=== PATIENT | male | born 1940 | race Caucasian/White ===

== ENCOUNTER 2018-10-10 05:42 | Observation (INO) ==
[2018-10-10] MEDS ORDERED: MORPHINE IV ONE (06:09)
--- NOTE | 2018-10-10 06:14 | PROVIDER DOCUMENTATION ---
HPI-General Adult - General Chief Complaint: Chest Pain Stated Complaint: (L) CHEST PAIN Time Seen by Provider: 10/10/18 06:01 Source: patient, family Allergies/Adverse Reactions: Patient Allergies Allergy/AdvReac Type Severity Reaction Status Date / Time Penicillins Allergy Unknown Verified 03/06/17 14:56 Home Medications: Home Medication List Medication Instructions Recorded Confirmed Last Taken Type Clopidogrel Bisulfate [Clopidogrel] 1 tab PO DAILY 03/06/17 03/06/17 Unknown History Diltiazem HCl [Diltiazem 24Hr ER 1 tab PO DAILY 03/06/17 03/06/17 Unknown History (Cd)] Lisinopril/Hydrochlorothiazide 1 tab PO DAILY 03/06/17 03/06/17 Unknown History [Lisinopril-Hctz 20-25 mg Tab] Nitroglycerin Sl [Nitroglycerin] 0.4 mg SL PRN PRN #100 tablet 03/06/17 03/06/17 Unknown Rx Pravastatin Sodium 40 mg PO DAILY 03/06/17 03/06/17 Unknown History CefDINIR [Omnicef] 300 mg PO BID #10 cap 03/10/17 Unknown Rx - History of Present Illness -Gen Adult Nature of Presenting Problems: Pt presents with cp, x 2 days, happened again this am and awoke the pt from sleep, left sided, pressure, radiation to the left arm, pt has prior CAD with a stent, pt still having some pain now, pt denies f/c, hu, sob, cough, ap, n/v/d. Pt is lying in bed in no acute distress. Location of Pain/Injury: reports: chest Pain Radiation: reports: arm(s) (left) Quality of Pain: reports: pressure Severity: reports: moderate Onset/Duration: reports: 1-3 hours ago Timing: reports: still present, improving Context/Activities at Onset: reports: none Modifying Factors: improves with: nothing Associated Symptoms: reports: denies symptoms Similar Symptoms Previously?: Yes Recently seen or treated by another doctor?: No Review of Systems - Adult - REVIEW OF SYSTEMS - ADULT Constitutional: reports: no symptoms reported Eyes: reports: no symptoms reported Ears, Nose, Mouth & Throat: reports: no symptoms reported Cardiovascular: reports: see HPI Respiratory: reports: no symptoms reported Gastrointestinal: reports: no symptoms reported Genitourinary: reports: no symptoms reported Musculoskeletal: reports: no symptoms reported Integumentary: reports: no symptoms reported Neurological: reports: no symptoms reported Psychiatric: reports: no symptoms reported Endocrine: reports: no symptoms reported Hematologic/Lymphatic: reports: no symptoms reported Allergic/Immunologic: reports: no symptoms reported All Other Systems: Reviewed and Negative Past History - Adult - PAST MEDICAL HISTORY-ADULT Review of Records: reports: Old Records Reviewed, Nursing Assessment Review, Medications Reviewed, Social history reviewed & non-contributory. Major Childhood Illnesses: reports: denies history Cardiovascular: reports: A-Fib, HTN, palpitations. denies: blood clots, PAD, pacemaker Respiratory: denies: asthma, COPD, sleep apnea Gastrointestinal: reports: hepatitis. denies: cholelithiasis, GERD, GI bleed, hemorrhoids, pancreatitis, ulcer Genitourinary: denies: ESRD, kidney disease, kidney stones, polycystic kidney disease, chronic UTI's, prostatitis, prostate cancer Musculoskeletal: reports: chronic pain Neurological: reports: TIA Psychiatric: reports: denies history Endocrine/Immune: denies: Diabetes, thyroid disorder Other Conditions: reports: denies history - PRIOR SURGERIES/PROCEDURES Surgical/Procedure History: reports: appendectomy, cardiac stent, joint replacement - IMMUNIZATION STATUS Childhood Immunizations: See Nurse Assessment Flu Vaccine: See Nurse Assessment Physical Exam-General - PHYSICAL EXAM-ADULT Initial Vital Signs Reviewed: Yes - CONSTITUTIONAL General Appearance: appears well - EYES Eyes: PERRL/EOMI - HEAD, EARS, NOSE, MOUTH & THROAT HENMT: normal ENT inspection - NECK Neck: normal inspection - RESPIRATORY Respiratory: lungs clear, no respiratory distress, no accessory muscle use - CARDIOVASCULAR Cardiovascular: regular rate, rhythm - GASTROINTESTINAL (ABDOMEN) Abdominal Exam: normal bowel sounds, non tender, soft - LYMPHATIC Lymphatic: no adenopathy - MUSCULOSKELETAL Back Exam: normal inspection Extremity: normal range of motion - SKIN Integumentary: normal color - NEUROLOGIC Neurologic: grossly normal - PSYCHIATRIC Psych/Mental Status: normal mood/affect Progress - PLAN OF CARE/RESULTS Progress/Plan/Lab Results: Vital Signs - 8 hr 10/10/18 05:50 Temperature 98.2 F Pulse Rate 80 Respiratory Rate 18 Blood Pressure 134/112 O2 Sat by Pulse Oximetry 97 Orders Category Date Time Status cxr [CHEST-1 VIEW] [RAD] Stat Exams 10/10/18 06:08 Ordered CBC WITH ELECTRONIC DIFF [HEME] Stat Lab 10/10/18 06:07 Uncollected COMPREHENSIVE METABOLIC PANEL [CHEM] Stat Lab 10/10/18 06:08 Uncollected PRO B-NATRIURETIC PEPTIDE Stat Lab 10/10/18 06:08 Uncollected TROPONIN T Stat Lab 10/10/18 06:08 Uncollected Morphine Med 10/10/18 06:09 Once 4 mg IV NOW ONE EKG [EKG] Stat Ther 10/10/18 05:46 Ordered Result Diagrams: 10/10/18 06:08 10/10/18 06:08 - CONSULTS/PCP/HOSPITALIST Notification #1 *Consult/PCP/Hospitalist*: Spoke with Celestino. Admitt to Dr Cruz Time Discussed: 07:48 Departure - Departure Date of Disposition Decision: 10/10/18 Time of Disposition Decision: 07:49 DIAGNOSIS: Chest pain Disposition: ADMITTED INPATIENT 09 Certified Medical Emergency: Emergent Condition: Stable Referrals and Follow-Ups: Tamika Montenegro MD [Primary Care Provider] - - Critical Care Note This patient required my direct & personal management of CC.: No Attestation - Physician/ BEN Attestation Patient care was provided by Advanced Practice Provider:: No The physician spent face to face time with patient:: Yes Advanced Practice Provider documentation review:: Supervising physician onsite and consulted in the evaluation and care of this patient. The physician did have a face to face encounter with the patient.
[2018-10-10 06:43] LABS: BASO# 0.02 X1000 (0.0-0.2); BASO% 0.3 % (0.0-0.8); EOS# 0.16 X1000 (0.0-0.7); EOS% 2.7 % (0.0-10.0); HEMATOCRIT 47.3 % (42.0-52.0); HEMOGLOBIN 16.6 g/dL (14.0-18.0); IMM GRAN# 0.03 X1000 (0.0-0.04); IMM GRAN% 0.5 % (0.0-0.5); LYMPH# 1.63 X1000 (1.2-3.4); LYMPH% 27.7 % (20.5-51.1); MCH 33.7 PG (27-31); MCHC 35.1 g/dL (33-37); MCV 95.9 FL (81-99); MONO# 0.53 X1000 (0.11-0.59); MPV 8.7 FL (7.4-10.4); NEUT# 3.51 X1000 (1.4-6.5); NEUT% 59.8 % (42.2-75.2); PLT 199 X1000 (130-400); RBC 4.93 XMIL (4.7-6.1); RDW 13.8 % (11.5-14.5); WBC 5.88 X1000 (4.8-10.8)
[2018-10-10 06:57] LABS: AGAP 13; ALB/GLOB RATIO 1.7; ALBUMIN 4.3 g/dL (3.5-5.0); ALKALINE PHOSPHATASE 110 U/L (32-122); BUN 19 mg/dL (8-22); CALCIUM 9.5 mg/dL (8.8-10.2); CHLORIDE 102 mmol/L (98-107); COSMO 284; CREATININE 0.9 mg/dL (0.7-1.2); ESTIMATED GFR > 60; GLUCOSE 102 mg/dL (70-104); GOT 27 U/L (10-34); GPT 24 U/L (10-44); POTASSIUM 4.5 mmol/L (3.5-5.1); SODIUM 141 mmol/L (136-145); TCO2 26 mmol/L (25-35); TOTAL BILIRUBIN 0.82 mg/dL (0.20-1.00); TOTAL PROTEIN 6.9 g/dL (6.3-8.3)
--- NOTE | 2018-10-10 07:17 | Diag Imaging Result Doc PS360 ---
EXAM: CHEST-1 VIEW HISTORY: chest pain TECHNIQUE: Portable chest single view COMPARISON: 03/09/2017 FINDINGS: The lungs are well expanded. The heart is enlarged. The vessels are not distended. There are no infiltrates. No effusion identified. IMPRESSION: Mild cardiomegaly Electronically signed by Jasper Squires 10/10/2018 7:14 AM
[2018-10-10] MEDS ORDERED: ZOFRAN IV PRN (09:55)
[2018-10-10] MEDS ORDERED: TYLENOL PO PRN (09:55)
[2018-10-10] MEDS ORDERED: NITROGLYCERIN SL PRN (09:55)
[2018-10-10 09:56] LABS: TSH 3.11 uIUmL (0.27-4.20)
--- NOTE | 2018-10-10 09:57 | HISTORY AND PHYSICAL ---
HISTORY OF PRESENT ILLNESS: This is a 78-year-old patient of Dr. Tamika Montenegro. He has a history of coronary artery disease, history of hypertension, history of peripheral vascular disease, prior CVA. He presented to the emergency room. I think he had chest pain a couple days ago and then he had some chest pain this morning that woke him up, left side, radiated to his left arm, felt like a syringe sticking him so it is sharp pain. His reported he was diaphoretic. He did not report palpitations. The pain lasted several minutes, was not associated with exertion. His swage tender is Dr. Saul Frazier. PAST MEDICAL HISTORY: 1. Coronary artery disease. 2. Hypertension. 3. Hyperlipidemia. 4. Macular degeneration. 5. Ulcerative colitis. 6. Paroxysmal atrial fibrillation. 7. Chronic lower back pain. PAST SURGICAL HISTORY: 1. Status post hernia repair. 2. Status post appendectomy. 3. He has had heart stents placed. I am not sure of details. 4. Left knee arthroplasty. FAMILY HISTORY: Grandfather, myocardial infarction. He has brothers with liver cancer, apparently cancer in the family, and I think he said his dad of a massive myocardial infarction. SOCIAL HISTORY: Negative for cigarettes. He does chew tobacco. Four mini bottles of liquor daily. REVIEW OF SYSTEMS: Constitutional: He does not sleep very well, I think he sleeps in a recliner and gets up and snacks through the night. 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 No fever or chills. Respiratory: He does not report any increased paroxysmal nocturnal dyspnea, increased orthopnea. His thinks maybe he has had a little more swelling in his ankles the last couple days. Cardiovascular: As above. He will get chest pains like this he says from [id number] but does not pay much attention to them, but this one got his attention. Gastrointestinal and Genitourinary: No complaints of change in bowels. He does have a history of ulcerative colitis and I am assuming he has a history of benign prostatic hypertrophy but is not having much in the way of symptoms. Musculoskeletal/neurologic: No focal complaints other than his back pain which has been chronic. Endocrinologic/hematologic: No significant history. PHYSICAL EXAMINATION: VITAL SIGNS: In the emergency room, temperature 98.2 degrees, pulse 74, respirations 23, blood pressure 147/103. HEENT: Pupils are equal and round. NECK: No distended neck veins. CVP less than 6 cm from right atrium. Neck is supple. No adenopathy appreciated. No thyromegaly. GENERAL: He is alert and oriented x3, pleasant, can give a good history. Weight 200 pounds. Height 5 feet 9 inches. LUNGS: Clear in all lung morgan. CARDIOVASCULAR: Regular rhythm and rate without murmur or S3. On the monitor, he appears to be in sinus rhythm. Carotid, radial, femoral pulses 2+ and symmetrical. No pedal edema. ABDOMEN: Soft, nondistended. LABORATORY DATA: White count 5880, hematocrit is 47, platelet count 199,000. Sodium 141, potassium 4.5, chloride 102, BUN 19, creatinine 0.9. ProBNP 555. Troponin less than 0.01. DIAGNOSTIC DATA: Chest x-ray, mild cardiomegaly. We will look at EKG ASSESSMENT AND PLAN: 1. Chest pain which is atypical, but he has a history of coronary artery disease. He has had a myocardial perfusion scan on 03/10/2017, which showed no evidence of ischemia, normal left ventricular cavity size, at that time ejection fraction was 60%. This chest pain is sharp. It is not necessarily related to exertion, although it does radiate into his left arm. We will ask Cardiology to help evaluate. We will check serial cardiac enzymes, both CK and troponin. We will check serial EKGs. 2. History of hypertension. We will watch his blood pressure. 3. History of hypercholesterolemia. We will check a lipid profile in the morning, fasting, as well as a T4, TSH, B12 and folate. 4. He has a history of ulcerative colitis which he has no complaints at this time. 5. History of paroxysmal atrial fibrillation, aware. 6. Chronic lower back pain. 7. Looking back at his old echocardiogram which was done in February 2017, there again, ejection fraction estimated at 60%, mild left ventricular hypertrophy. Technically suboptimal study. No valvular dysfunction. There was trace to mild mitral regurgitation. His electrocardiogram done on 03/07/2017, at that time he was in sinus tachycardia, had some PVCs, poor R-wave progression in the anterolateral leads but no ST-segment pathology that I can appreciate. He had an extremity venous study done back in February 2017, this was for chest pain; no evidence of deep venous thrombosis. cc: Shane Cruz MD MTDD
[2018-10-10 11:36] LABS: AGAP 15; BUN 17 mg/dL (8-22); CALCIUM 9.6 mg/dL (8.8-10.2); CHLORIDE 103 mmol/L (98-107); CK PROFILE 71 U/L (24-204); COSMO 285; CREATININE 0.8 mg/dL (0.7-1.2); ESTIMATED GFR > 60; GLUCOSE 100 mg/dL (70-104); POTASSIUM 4.2 mmol/L (3.5-5.1); SODIUM 142 mmol/L (136-145); TCO2 24 mmol/L (25-35)
[2018-10-10] MEDS: PRINZIDE 10/12.5MG PO SCH (14:00)
[2018-10-10] MEDS: CARDIZEM CD PO SCH (15:19)
[2018-10-10] MEDS: MORPHINE IV PRN (17:13)
--- NOTE | 2018-10-10 20:18 | CONSULTATION ---
DATE OF CONSULTATION: 10/10/2018 IMPRESSION: 1. Episode of chest pain, fairly typical for myocardial ischemia and quite brief. ECG is benign. 2. Atherosclerotic coronary disease with history of previous coronary angioplasty/stent approximately 3 years ago. Patient last had stress testing in 2017 which was reportedly negative. 3. Hypertension. 4. Hyperlipidemia. 5. Obesity. RECOMMENDATIONS: 1. Telemetry observation. 2. Follow through with serial cardiac enzymes. 3. 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 HISTORY: This 78-year-old white male with past history of previous coronary angioplasty/stent approximately 3 years ago, hypertension, peripheral vascular disease and hyperlipidemia was admitted to the emergency room after an episode of chest pain. He describes some sharp, brief left-sided chest discomfort. There was some numbness in his left arm. The discomfort occurred while he was "piddling" in the yard. The discomfort lasted 1 or 2 minutes and resolved spontaneously. There were no other associated symptoms. The discomfort was not like what he had with his previous heart attack. There were no other associated symptoms. The discomfort is not like what he had prior to his coronary angioplasty procedure 3 years ago. He describes the previous chest discomfort as being a dull, deep discomfort. He is fairly active physically and denies any exertional chest discomfort. PAST MEDICAL HISTORY: 1. Atherosclerotic coronary disease. 2. Hypertension. 3. Hyperlipidemia. 4. Macular degeneration with impaired vision. 5. Ulcerative colitis. 6. Previous episode of atrial fibrillation. 7. Chronic low back pain. PAST SURGICAL HISTORY: 1. Previous hernia repair. 2. Appendectomy. 3. Left knee arthroplasty. ALLERGIES/INTOLERANCES:: Penicillins. MEDICATIONS PRIOR TO ADMISSION: As listed. SOCIAL HISTORY: He does not smoke. He does chew tobacco. He drinks several small alcoholic beverages daily. FAMILY HISTORY: Negative for premature coronary disease. There is a family history of coronary disease with older age of clinical onset. REVIEW OF SYSTEMS: Pulmonary: Negative. Gastrointestinal: Negative. Constitutional: Negative. Remainder of Systems: Negative/noncontributory with 14 total systems reviewed. PHYSICAL EXAMINATION: General: This is an overweight older white male with mild obesity, in no distress on room air. Vital signs: Blood pressure ranging from 145/104 to 179/124, heart rate 90 and regular. Oxygen saturation 94% on room air. HEENT: Extraocular movements intact. Mucous membranes moist. Neck: Supple without jugular venous distention. There are no carotid bruits. Chest: Clear to auscultation bilaterally. Cardiac Exam: Reveals a regular rate and rhythm without appreciable murmur or gallop. Abdomen: Soft and nontender. Bowel sounds are normal. Extremities: Without edema. Neurologic: Reveals him to be alert. Speech is fluent. He moves all 4 extremities equally well. Skin: Warm and dry. Psychiatric: Reveals mood to be appropriate. PERTINENT DATA: Twelve-lead EKG obtained in the emergency room is not scanned into the medical record not in the patient's bedside chart. LABORATORY DATA: Includes a white blood cell count of 5.8, hematocrit of 47.3, hemoglobin of 16.6, platelet count of 199. Sodium 142, potassium 4.2, chloride 103, carbon dioxide 24, BUN 17, creatinine 0.8, glucose 100. Troponin-T less than 0.01. Repeat troponin-T less than 0.01. cc: Shmuel Cantor MD
[2018-10-10] MEDS: ELIQUIS PO SCH (20:41)
[2018-10-10] MEDS ORDERED: PRAVACHOL PO SCH (21:00)
[2018-10-11] MEDS: MORPHINE IV PRN (02:00)
[2018-10-11 06:45] LABS: BASO# 0.02 X1000 (0.0-0.2); BASO% 0.3 % (0.0-0.8); EOS# 0.14 X1000 (0.0-0.7); HEMATOCRIT 48.4 % (42.0-52.0); HEMOGLOBIN 16.4 g/dL (14.0-18.0); IMM GRAN# 0.02 X1000 (0.0-0.04); IMM GRAN% 0.3 % (0.0-0.5); LYMPH# 1.65 X1000 (1.2-3.4); LYMPH% 23.9 % (20.5-51.1); MCH 33.1 PG (27-31); MCHC 33.9 g/dL (33-37); MCV 97.6 FL (81-99); MONO# 0.78 X1000 (0.11-0.59); MONO% 11.3 % (1.7-9.3); MPV 8.7 FL (7.4-10.4); NEUT# 4.29 X1000 (1.4-6.5); NEUT% 62.2 % (42.2-75.2); PLT 190 X1000 (130-400); RBC 4.96 XMIL (4.7-6.1); RDW 13.9 % (11.5-14.5)
[2018-10-11] MEDS ORDERED: PRILOSEC PO SCH (07:00)
[2018-10-11 07:43] VITALS: BP 120/76
[2018-10-11] MEDS: CARDIZEM CD PO SCH (08:14)
[2018-10-11] MEDS: ELIQUIS PO SCH (08:14)
[2018-10-11] MEDS: PRINZIDE 10/12.5MG PO SCH (08:15)
[2018-10-11] MEDS ORDERED: ASPIRIN PO SCH ×2 (09:00)
--- NOTE | 2018-10-11 11:50 | PROGRESS NOTE ---
DATE: 10/11/2018 SUBJECTIVE: The patient continues without further chest discomfort. He does relate that he has chronic abdominal bloating and constipation to the point that he has to take laxatives frequently. OBJECTIVE: Vital Signs: Blood pressure 120/76, heart rate 58 and regular, oxygen saturation 100% on room air. There is no significant jugular venous distention. Chest is clear to auscultation. Cardiac Examination reveals a regular rate and rhythm without appreciable murmur or gallop. Abdomen is distended and tympanitic. Bowel sounds audible. Extremities are without edema. Laboratory Data: Includes white blood cell count of 6.9, hematocrit. 48.86, hemoglobin 16.4, platelet count 190,000. Initial troponin less than 0.01. Followup troponin less 0.01 and further followup troponin less than 0.01. Initial CPK 76 with a followup CPK of 56. Triglycerides 177, total cholesterol 173, LDL cholesterol 99, HDL cholesterol 68. IMPRESSION: 1. Recent brief episode of atypical chest pain with no objective evidence of ischemia. 2. Atherosclerotic coronary disease with previous coronary angioplasty/stent approximately 3 years ago. 3. Hypertension. 4. Hyperlipidemia. LDL cholesterol above desired target despite Pravachol. 5. Obesity. 6. Tendency for constipation, possibly related to calcium channel antagonist, diltiazem. RECOMMENDATIONS: 1. Discontinue diltiazem and start carvedilol. 2. Switch from lisinopril/hydrochlorothiazide to losartan. 3. Intensify statin therapy by discontinuing pravastatin and starting atorvastatin 20 mg p.o. daily. 4. 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 Saul Frazier, and consider further evaluation with Lexiscan sestamibi study. cc: Shmuel Cantor MD
[2018-10-11] MEDS ORDERED: PNEUMOVAX 23 IM ONE (13:51)
--- NOTE | 2018-10-11 13:57 | DISCHARGE SUMMARY ---
ADMISSION DATE: 10/10/2018 DISCHARGE DATE: 10/11/[address] Tamika Montenegro, 78-year-old has a history of coronary artery disease, history of hypertension, history of peripheral vascular disease, prior CVA. He presented to the emergency room, had chest pain couple days and then had some pain and woke him up the left side described as a syringe poking in him sharp pain and the stated he was diaphoretic. He did not report any palpitations. The pain lasted several minutes and seemed to come and go. He is followed by Dr. Saul Frazier. PAST MEDICAL HISTORY: 1. Coronary artery disease. 2. Hypertension. 3. Hyperlipidemia. 4. Macular degeneration. 5. Ulcerative colitis. 6. Paroxysmal atrial fibrillation. 7. Chronic lower back pain. PAST SURGICAL HISTORY: 1. Status post hernia repair. 2. Status post appendectomy. 3. Had some heart stents placed in the past. 4. Left knee arthroplasty. The patient had negative enzymes. He did not show any further sign of chest pain. Troponin was less than 0.01. CK was less than 80. EKGs with no significant change. No ST-segment suspicions. Chest x-ray unremarkable. [place] he could go home and he can follow up with Dr. Frazier as an outpatient. He was requesting to go home. DISCHARGE MEDICATION: Eliquis I think 5 mg twice a day, diltiazem ER 1 tablet daily, lisinopril/hydrochlorothiazide 20/25 one a day, nitroglycerin as needed tablets 0.4 mg and pravastatin 40 mg daily, I think he takes an aspirin 81 mg daily as well, I put him on Prilosec 20 mg daily and I think I will continue that for a bit, his Coreg he is at 6.25 mg b.i.d. and Cozaar he takes 50 mg a day. cc: Shane Cruz MD
[2018-10-11] MEDS ORDERED: LIPITOR PO SCH (21:00)
[2018-10-11] MEDS ORDERED: COREG PO SCH (21:00)
--- NOTE | 2018-10-12 07:00 | EKG Report ---
Test Performed on : 10/10/2018 05:48:35 AM Test Reason : CP Blood Pressure : / mmHG Vent. Rate : 078 BPM Atrial Rate : 394 BPM P-R Int : 000 ms QRS Dur : 094 ms QT Int : 380 ms P-R-T Axes : 000 -21 006 degrees QTc Int : 433 ms Atrial fibrillation. Abnormal ECG When compared with ECG of 07-MAR-2017 16:25, Atrial fibrillation. has replaced Sinus rhythm. Unconfirmed Result
--- NOTE | 2018-10-12 07:26 | EKG Report ---
Test Performed on : 10/11/2018 06:31:38 AM Test Reason : Chest Pain Blood Pressure : / mmHG Vent. Rate : 055 BPM Atrial Rate : 053 BPM P-R Int : 000 ms QRS Dur : 098 ms QT Int : 452 ms P-R-T Axes : 000 -25 030 degrees QTc Int : 432 ms Atrial fibrillation. with slow ventricular response. with premature ventricular or aberrantly conduct ed complexes. Abnormal ECG When compared with ECG of 10-OCT-2018 15:32, (Unconfirmed) No significant change was found Confirmed by Anthony COLVIN, Shane Jasso ([id number]) on 10/12/2018 5:05:51 PM
--- NOTE | 2018-10-12 07:28 | EKG Report ---
Test Performed on : 10/10/2018 3:32:46 PM Test Reason : CAD Blood Pressure : / mmHG Vent. Rate : 077 BPM Atrial Rate : 080 BPM P-R Int : 000 ms QRS Dur : 102 ms QT Int : 384 ms P-R-T Axes : 000 -27 003 degrees QTc Int : 434 ms Atrial fibrillation. with premature ventricular or aberrantly conducted complexes. Septal infarct , age undetermined Abnormal ECG When compared with ECG of 10-OCT-2018 05:48, (Unconfirmed) No significant change was found Confirmed by Anthony COLVIN, Shane Jasso ([id number]) on 10/12/2018 5:05:42 PM
[2018-10-12] MEDS ORDERED: COZAAR PO SCH (09:00)
== END 2018-10-11 14:59 | disposition home or self-care (01) ==
LOC: 3N 05:42 → ED 05:42
PROVIDERS: ATTEND Emergency Medicine
CPT/HCPCS: 71010; 71045; 80048; 80053; 80061; 82550; 82607; 82746; 83721; 83880; 84439; 84443; 84484; 85025; 90732; 93005; 93010; 94761; A9270; J2270; J2405

== ENCOUNTER 2019-01-01 22:54 | Observation (INO) ==
[2019-01-01] MEDS ORDERED: DUONEB (A & A) INH ONE (23:46)
[2019-01-01] MEDS ORDERED: ASPIRIN PO ONE (23:47)
--- NOTE | 2019-01-01 23:51 | PROVIDER DOCUMENTATION ---
HPI-Chest Pain - General Chief Complaint: Chest Pain Stated Complaint: NECK/BACK/CHEST PAIN Time Seen by Provider: 01/01/19 23:55 Source: patient Allergies/Adverse Reactions: Patient Allergies Allergy/AdvReac Type Severity Reaction Status Date / Time Penicillins Allergy Unknown Verified 10/10/18 09:18 Home Medications: Home Medication List Medication Instructions Recorded Confirmed Last Taken Type Diltiazem HCl [Diltiazem 24Hr ER 1 tab PO DAILY 03/06/17 01/01/19 Unknown History (Cd)] Lisinopril/Hydrochlorothiazide 1 tab PO DAILY 03/06/17 01/01/19 Unknown History [Lisinopril-Hctz 20-25 mg Tab] Nitroglycerin Sl [Nitroglycerin] 0.4 mg SL PRN PRN #100 tablet 03/06/17 10/10/18 Unknown Rx Pravastatin Sodium 40 mg PO DAILY 03/06/17 01/01/19 Unknown History ATORVAstatin [Lipitor] 20 mg PO QHS tab 10/11/18 Unknown Rx Apixaban [Eliquis] 5 mg PO BID tab 10/11/18 01/01/19 Unknown Rx Aspirin 81 mg PO DAILY chewtab 10/11/18 01/01/19 Unknown Rx Carvedilol [Coreg] 6.25 mg PO Q12H 30 Days #60 tab 10/11/18 01/01/19 Unknown Rx Nitroglycerin Sl [Nitroglycerin] 0.4 mg SUBLINGUAL Q5M PRN PRN tab 10/11/18 01/01/19 Unknown Rx Omeprazole [Prilosec] 20 mg PO DAILY@0700 cap 10/11/18 Unknown Rx - History of Present Illness-CP Nature of Presenting Problem: Patient with a h/o HTN, Afib on medication, here today with c/o left sided chest pain and left mid back pain . started around 2 pm -10hrs ago. He did not take any medication. admits to mild diaphoresis, mild nausea without vomiting. Reports sob which he may have had in the past. He sleeps on the recliner from difficulty breathing which he states comes from his nostrils he reports no other sxs Location: reports: other (left sided) Quality of Pain: reports: throbbing Onset/Duration: this afternoon Modifying Factors: improves with: nothing Associated Symptoms: reports: diaphoresis, nausea Nitro Today/Relief: no nitro taken today Aspirin Treatment Today: no aspirin today Review of Systems - Adult - REVIEW OF SYSTEMS - ADULT Constitutional: reports: no symptoms reported Eyes: reports: no symptoms reported Ears, Nose, Mouth & Throat: reports: no symptoms reported Cardiovascular: reports: see HPI Respiratory: reports: see HPI Gastrointestinal: reports: no symptoms reported Genitourinary: reports: no symptoms reported Musculoskeletal: reports: no symptoms reported Integumentary: reports: no symptoms reported Neurological: reports: no symptoms reported Psychiatric: reports: no symptoms reported Endocrine: reports: no symptoms reported Hematologic/Lymphatic: reports: no symptoms reported Allergic/Immunologic: reports: allergic rhinitis Past History - Adult - PAST MEDICAL HISTORY-ADULT Review of Records: reports: Nursing Assessment Review, Medications Reviewed, Social history reviewed & non-contributory. Major Childhood Illnesses: reports: denies history Cardiovascular: reports: A-Fib, HTN, palpitations. denies: blood clots, PAD, pacemaker Respiratory: denies: asthma, COPD, sleep apnea Gastrointestinal: reports: hepatitis. denies: cholelithiasis, GERD, GI bleed, hemorrhoids, pancreatitis, ulcer Genitourinary: denies: ESRD, kidney disease, kidney stones, polycystic kidney disease, chronic UTI's, prostatitis, prostate cancer Musculoskeletal: reports: chronic pain Neurological: reports: TIA Psychiatric: reports: denies history Endocrine/Immune: denies: Diabetes, thyroid disorder Other Conditions: reports: denies history - PRIOR SURGERIES/PROCEDURES Surgical/Procedure History: reports: appendectomy, cardiac stent, joint replacement - IMMUNIZATION STATUS Childhood Immunizations: See Nurse Assessment Flu Vaccine: See Nurse Assessment - SOCIAL HISTORY Smoking: other (uses tocacco) Alcohol Use Frequency: never Living Situation: family Physical Exam-General - PHYSICAL EXAM-ADULT Initial Vital Signs Reviewed: Yes - CONSTITUTIONAL General Appearance: appears well, alert - EYES Eyes: PERRL/EOMI - NECK Neck: non-tender, full range of motion, supple - RESPIRATORY Respiratory: wheezing (scanty wheezing noted mainly on the right > left) - CARDIOVASCULAR Cardiovascular: irregularly irregular - MUSCULOSKELETAL Back Exam: normal inspection Extremity: normal range of motion, non-tender - SKIN Integumentary: normal color - PSYCHIATRIC Psych/Mental Status: disoriented x 3 - HEART Score HEART Score: History: Moderately Suspicious HEART Score: ECG: Non-Specific Repolarization Disturbance/LBBB/PM (6) HEART Score: Age: > or = 65 Years HEART Score: Risk Factors for Atherosclerotic Disease: > or = 3 Risk Factors or History of Atherosclerotic Disease HEART Score: Troponin: < or = Normal Limit Total HEART Score:: 6 Progress - PLAN OF CARE/RESULTS Progress/Plan/Lab Results: Vital Signs - 8 hr 01/01/19 23:07 01/02/19 01:05 Temperature 99.5 F Pulse Rate 95 H 101 H Respiratory Rate 20 22 Blood Pressure 145/97 O2 Sat by Pulse Oximetry 96 95 Laboratory Results - last 24 hr 01/01/19 01/01/19 01/01/19 23:31 23:31 23:31 WBC 8.52 RBC 4.62 L Hgb 15.5 Hct 45.1 MCV 97.6 MCH 33.5 H MCHC 34.4 RDW Std Deviation 13.3 Plt Count 215 MPV 8.7 Immature Gran % (Auto) 0.5 Neut % (Auto) 71.5 Lymph % (Auto) 13.4 L [place] % (Auto) 13.7 H Eos % (Auto) 0.7 Baso % (Auto) 0.2 Immature Gran # (Auto) 0.04 Neut # (Auto) 6.09 Lymph # (Auto) 1.14 L [place] # (Auto) 1.17 H Eos # (Auto) 0.06 Baso # (Auto) 0.02 Sodium 138 Potassium 4.3 Chloride 101 Carbon Dioxide 26 Anion Gap 11 BUN 16 Creatinine 0.8 Estimated GFR/1.73 m2 > 60 BUN/Creatinine Ratio 20 Glucose 99 Calculated Osmolality 277 Calcium 8.4 L Total Bilirubin 1.04 H AST 17 ALT 13 Alkaline Phosphatase 105 Troponin T < 0.010 Total Protein 6.6 Albumin 4.1 Globulin 2.5 Albumin/Globulin Ratio 1.6 Orders Category Date Time Status CHEST-2 VIEWS [RAD] Stat Exams 01/01/19 23:47 Taken CBC WITH ELECTRONIC DIFF [HEME] Stat Lab 01/01/19 23:31 Completed CK PROFILE [SP CHEM] Stat Lab 01/02/19 02:24 Received COMPREHENSIVE METABOLIC PANEL [CHEM] Stat Lab 01/01/19 23:31 Completed TROPONIN T Stat Lab 01/01/19 23:31 Completed TROPONIN T Stat Lab 01/02/19 02:16 Received Albuterol 2.5MG/Ipratrop 0.5MG [Duoneb (A & A)] Med 01/01/19 23:46 Discontinued 3 ml INH NOW ONE Apixaban [Eliquis] Med 01/02/19 09:00 Ordered 5 mg PO BID Aspirin Med 01/01/19 23:47 Discontinued 324 mg PO NOW ONE Aspirin Med 01/02/19 09:00 Active 81 mg PO DAILY Carvedilol [Coreg] Med 01/02/19 02:45 Ordered 6.25 mg PO Q12H Diltiazem HCl [Diltiazem 24Hr ER (Cd)] Med 01/02/19 09:00 Ordered 1 tab PO DAILY Lisinopril/Hydrochlorothiazide [Lisinopril-Hctz 20-25 Med 01/02/19 09:00 Ordered mg Tab] 1 tab PO DAILY Nitroglycerin Sl [Nitroglycerin] Med 01/02/19 02:34 Ordered 0.4 mg SL Q5M PRN PRN PRAVAstatin [Pravachol] Med 01/02/19 09:00 Ordered 40 mg PO DAILY Aerosol Treatments Routine Oth 01/01/19 23:48 Completed Aerosol Treatments Stat Oth 01/01/19 23:48 Completed Transfer/Admit Order [TRANSFER] Routine Transfer 01/02/19 02:36 Ordered Result Diagrams: 01/01/19 23:31 01/01/19 23:31 - REASSESSMENT Reassessment #1 Time Reassessed: 01:56 Reassessment #2 Time Reassessed: 01:56 Status: improving (Patient no longer has chest pain , 1st set of troponin is negative. Explained to him and about his high heart score of 6 and the need to monitor him overnight or a 2nd set of troponin in the least. he wants to go home. He wants to come come back if symptomatic. Explained the risk of heart attack including . he wants to follow up with his workers' compensation hearings officer or return for worsening of sxs. He is aware of his risk and he insist on signing out AMA. informed him to use NTG if pain occured again and return to ER [facility]. He and have an understanding of these instructions) Reassessment #3 Time Reassessed: 02:20 Status: other (patient and now agreed for patient to be evaluated as in patient. Called Dr Vale - hospitalist and pt will be admitted to r/o NE) - CONSULTS/PCP/HOSPITALIST Notification #1 *Consult/PCP/Hospitalist*: Dr vale Time Discussed: 02:24 Consult Disposition: Admit Departure - Departure Date of Disposition Decision: 01/02/19 Time of Disposition Decision: 02:56 DIAGNOSIS: Chest pain Qualifiers: Chest pain type: unspecified Qualified Code(s): R07.9 - Chest pain, unspecified Disposition: ADMITTED INPATIENT 09 Certified Medical Emergency: Emergent Condition: Fair Referrals and Follow-Ups: Tamika Montenegro MD [Primary Care Provider] - - Critical Care Note This patient required my direct & personal management of CC.: Yes Attestation - Physician/ BEN Attestation Patient care was provided by Advanced Practice Provider:: No The physician spent face to face time with patient:: Yes Advanced Practice Provider documentation review:: Supervising physician onsite and consulted in the evaluation and care of this patient. The physician did have a face to face encounter with the patient.
[2019-01-02 00:10] LABS: BASO# 0.02 X1000 (0.0-0.2); BASO% 0.2 % (0.0-0.8); EOS# 0.06 X1000 (0.0-0.7); EOS% 0.7 % (0.0-10.0); HEMATOCRIT 45.1 % (42.0-52.0); HEMOGLOBIN 15.5 g/dL (14.0-18.0); IMM GRAN# 0.04 X1000 (0.0-0.04); IMM GRAN% 0.5 % (0.0-0.5); LYMPH# 1.14 X1000 (1.2-3.4); LYMPH% 13.4 % (20.5-51.1); MCH 33.5 PG (27-31); MCHC 34.4 g/dL (33-37); MCV 97.6 FL (81-99); MONO# 1.17 X1000 (0.11-0.59); MONO% 13.7 % (1.7-9.3); MPV 8.7 FL (7.4-10.4); NEUT# 6.09 X1000 (1.4-6.5); NEUT% 71.5 % (42.2-75.2); PLT 215 X1000 (130-400); RBC 4.62 XMIL (4.7-6.1); RDW 13.3 % (11.5-14.5); WBC 8.52 X1000 (4.8-10.8)
[2019-01-02 00:34] LABS: AGAP 11; BUN 16 mg/dL (8-22); CHLORIDE 101 mmol/L (98-107); COSMO 277; CREATININE 0.8 mg/dL (0.7-1.2); GLUCOSE 99 mg/dL (70-104); POTASSIUM 4.3 mmol/L (3.5-5.1); SODIUM 138 mmol/L (136-145); TCO2 26 mmol/L (25-35)
[2019-01-02 00:35] LABS: ALB/GLOB RATIO 1.6; ALBUMIN 4.1 g/dL (3.5-5.0); ALKALINE PHOSPHATASE 105 U/L (32-122); CALCIUM 8.4 mg/dL (8.8-10.2); ESTIMATED GFR > 60; GOT 17 U/L (10-34); GPT 13 U/L (10-44); TOTAL BILIRUBIN 1.04 mg/dL (0.20-1.00); TOTAL PROTEIN 6.6 g/dL (6.3-8.3)
[2019-01-02] MEDS ORDERED: NITROGLYCERIN SL PRN (02:34)
[2019-01-02] MEDS ORDERED: ZOFRAN IV PRN (04:04)
[2019-01-02] MEDS: COREG PO SCH ×2 (04:34→14:41)
--- NOTE | 2019-01-02 06:47 | EKG Report ---
Test Performed on : 01/01/2019 11:02:55 PM Test Reason : cp Blood Pressure : / mmHG Vent. Rate : 100 BPM Atrial Rate : 468 BPM P-R Int : 000 ms QRS Dur : 092 ms QT Int : 298 ms P-R-T Axes : 000 -19 011 degrees QTc Int : 384 ms Atrial fibrillation. with premature ventricular or aberrantly conducted complexes. Abnormal ECG When compared with ECG of 11-OCT-2018 06:31, Vent. rate has increased BY 45 BPM Unconfirmed Result
--- NOTE | 2019-01-02 07:49 | HISTORY AND PHYSICAL ---
CHIEF COMPLAINT: Chest pain. HISTORY OF PRESENT ILLNESS: The patient is a 78-year-old male who notes that he had chest pain similar to this several times in the past. He was admitted to the hospital approximately a year ago with similar symptoms and then it went away. States he had a stress test a couple ago that was negative. He is unsure if he has ever had a heart attack. States he has been told that he did and then was told that he did not. Regardless, comes in today complaining of left-sided chest pain. Back pain started around 2 p.m. this afternoon and has been ongoing for approximately 10 hours. He finally found someone to bring him to the hospital. 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 States he had some nausea and vomiting and mild sweating, shortness of breath. Notes that he chronically has difficulty breathing and sleeps in a recliner and has so for 30 years. ALLERGIES: Penicillin. MEDICATIONS: Diltiazem ER, lisinopril hydrochlorothiazide 20/25, Pravachol 40, Eliquis 5 mg twice daily, aspirin 81, Coreg 6.25 twice daily. PAST MEDICAL HISTORY: Atrial fibrillation, hypertension, chronic palpitations, chronic pain, history of TIA, history of hepatitis. SURGICAL HISTORY: Appendectomy, cardiac stenting, joint replacement. FAMILY HISTORY: Positive for hypertension. SOCIAL HISTORY: The patient continues to smoke. Denies alcohol or illicit substances. He currently lives at home. He is retired, although he does work in the garden most days. REVIEW OF SYSTEMS: As noted above. Denies any headaches, blurred vision, change in vision, denies any focalized numbness, tingling, weakness in extremities. Denies any dysuria, frequency, urgency, hesitancy, constipation, melena, hematochezia. PHYSICAL EXAMINATION: VITAL SIGNS: Temperature 99.5 degrees, pulse 95, respiratory 20, blood pressure 145/97, saturating 96% on room air. GENERAL: Patient is awake, alert, currently in no distress. HEENT: Normocephalic. NECK: Supple. CARDIOVASCULAR: Regular rate. CHEST: Clear. cc: Trlel Dick MD
--- NOTE | 2019-01-02 07:52 | HISTORY AND PHYSICAL ---
ADDENDUM REPORT OBJECTIVE: Vital Signs: Reviewed. Temperature 99.5 degrees, pulse 95, respiratory 20, blood pressure 145/97, saturating 96% on room air. General: Patient is awake, alert. He is in no respiratory distress. He is sitting up on the side of the bed. He is alert and oriented x3. Answers questions appropriately. HEENT: Normocephalic. Neck: Supple. Cardiovascular: Irregular rate, irregular rhythm, currently rate controlled. Chest: Clear, nonlabored no wheezing. Abdomen: Soft, obese, nondistended. Extremities: Moves all extremities. No edema. Neurologic: No changes. LABORATORY DATA: Labs reviewed. CBC, CMP essentially negative. ASSESSMENT: 1. Chest pain. 2. Atrial fibrillation. 3. Diabetes. 4. Chronic tobacco abuse. 5. High cholesterol. 6. Morbid obesity. PLAN: We will admit patient to the hospital to rule out [place]. We will schedule him for a stress test and will follow. cc: Trell Dick MD
--- NOTE | 2019-01-02 09:13 | Diag Imaging Result Doc PS360 ---
EXAM: CHEST-2 VIEWS INDICATION: chest pain TECHNIQUE: 2 views COMPARISON: 10/10/2018 FINDINGS: The lungs are grossly clear. There is no discrete pleural fluid collection or pneumothorax. There is stable cardiomegaly. Central vasculature is unremarkable. IMPRESSION: Stable cardiomegaly. No definite acute chest pathology, otherwise. Electronically signed by Neo Nguyen 01/02/2019 9:11 AM
[2019-01-02] MEDS: CARDIZEM CD PO SCH (10:17)
[2019-01-02] MEDS: ASPIRIN PO SCH (10:17)
[2019-01-02] MEDS: ELIQUIS PO SCH ×3 (10:18→21:27)
[2019-01-02] MEDS: PRAVACHOL PO SCH (10:18)
[2019-01-02] MEDS: PRINZIDE 10/12.5MG PO SCH (10:18)
[2019-01-02 10:54] LABS: CHOLESTEROL 149 mg/dL (0-200); HDL 53 mg/dL (35-55); HEMOGLOBIN A1C 4.9 % (4.8-6.0); LDL 67 mg/dL; TRIGLYCERIDES 145 mg/dL (39-160); VLDL 29 mg/dL
--- NOTE | 2019-01-02 18:45 | ECHO REPORT ---
ORDER DATE: 01/02/2019 ECHOCARDIOGRAPHIC MEASUREMENTS: 1. Interventricular septum 1.6. 2. Left ventricular posterior wall 1.6. 3. Left ventricular diastolic diameter 4.5. 4. Left ventricular systolic diameter 3.4. 5. Left atrium 5.6. 6. Aorta 4. FINDINGS: 1. Technically suboptimal study. Definity was used to assess left ventricular systolic function. 2. There is moderate biatrial enlargement. 3. Aortic valve leaflets are trileaflet. 4. Pulmonic valve not well visualized. 5. Mitral valve is normal. 6. Tricuspid valve is normal. Peak velocity across the tricuspid valve less than 2 m/sec. 7. Peak velocity across the aortic valve less than 2 m/sec. There is no aortic stenosis or regurgitation. There is mild mitral regurgitation. 8. The patient is in atrial fibrillation. Diastolic function could not be assessed. 9. Definity was used to assess left ventricular systolic function. Normal left ventricular cavity size. Concentric left ventricular hypertrophy. Estimated ejection fraction of 60 to 65 percent. 10. There is no pericardial effusion, or obvious intracardiac mass or thrombus seen. cc: MD Ethan Nicholas MD
--- NOTE | 2019-01-02 18:47 | EKG Report ---
Test Performed on : 01/02/2019 5:46:50 PM Test Reason : decreased heart rate Blood Pressure : / mmHG Vent. Rate : 053 BPM Atrial Rate : 441 BPM P-R Int : 000 ms QRS Dur : 098 ms QT Int : 452 ms P-R-T Axes : 000 -18 008 degrees QTc Int : 424 ms Atrial fibrillation. with slow ventricular response. Abnormal ECG When compared with ECG of Dec-2018 heart rate is now slower Confirmed by Rani COLVIN, Goran Aleman ([id number]) on 01/03/2019 6:46:49 AM
[2019-01-03 06:19] LABS: HEMATOCRIT 46.4 % (42.0-52.0); HEMOGLOBIN 15.7 g/dL (14.0-18.0); MCHC 33.8 g/dL (33-37); MCV 100.4 FL (81-99); RBC 4.62 XMIL (4.7-6.1); RDW 13.6 % (11.5-14.5); WBC 5.42 X1000 (4.8-10.8)
[2019-01-03 06:35] LABS: AGAP 12; BUN 10 mg/dL (8-22); CALCIUM 8.4 mg/dL (8.8-10.2); CHLORIDE 102 mmol/L (98-107); COSMO 280; CREATININE 0.7 mg/dL (0.7-1.2); ESTIMATED GFR > 60; GLUCOSE 124 mg/dL (70-104); POTASSIUM 3.7 mmol/L (3.5-5.1); SODIUM 140 mmol/L (136-145); TCO2 26 mmol/L (25-35)
--- NOTE | 2019-01-03 08:57 | PROGRESS NOTE ---
DATE: 01/03/2019 SUBJECTIVE: The patient reports feeling fine. Denies any chest pressure and chest pain. According to nursing staff, this patient's heart rate has been in the low range of 50s and sometimes reached 100. OBJECTIVE: Vital Signs: Temperature 98.2 degrees, heart rate 60, respiratory rate 20, blood pressure 106/71, O2 saturation 96% on room air. General Examination: This is a 78-year-old, male, lying in bed, in no acute distress. Cardiovascular Examination: Irregularly irregular heart rhythm. No murmurs, gallops, or rubs. Respiratory Examination: Clear bilaterally to auscultation. No work of breathing or using accessory muscles. Abdomen: Soft. Nontender to palpation. Nondistended. Bowel sounds present. No organomegaly. Extremities: No clubbing, cyanosis, or edema. Peripheral pulses present in both legs. Neurological Examination: The patient is alert and oriented x3. Moves 4 extremities. Laboratory Data: We have checked troponins 3 times and those are negative. CBC is okay, BMP as well. Hemoglobin A1c is 4.9 and the lipid panel is okay. ASSESSMENT: 1. Chest pain. 2. Atrial fibrillation. 3. Hypercholesterolemia. 4. Chronic tobacco abuse. 5. Morbid obesity. PLAN: The patient was admitted to the hospital for an episode of chest pain. In the H and P, it was documented that the patient has diabetes but he claimed she does not have diabetes and hemoglobin A1c was 4.6 so at this point, I do not think he has diabetes. He is not following any special diet so we are not going to check any Accu-Cheks on him while he is in the hospital. Regarding chest pain, we have checked troponins 3 times but considering his history of hypercholesterolemia and hypertension, we will proceed with a Lexiscan stress test. Patient also has atrial fibrillation but his heart rate has been up and down, according to the nursing staff. At this point, we are going to continue with home medications and we will consult cardiology. For hypercholesterolemia, we will continue home medications. That condition is very well controlled. At this point, we will continue to monitor this patient closely. cc: Ethan Gonzlaes MD
[2019-01-03] MEDS: ELIQUIS PO SCH ×2 (09:19→21:09)
[2019-01-03] MEDS: PRINZIDE 10/12.5MG PO SCH (09:19)
[2019-01-03] MEDS: ASPIRIN PO SCH (09:19)
[2019-01-03] MEDS: CARDIZEM CD PO SCH (09:19)
[2019-01-03] MEDS: PRAVACHOL PO SCH (09:19)
--- NOTE | 2019-01-03 12:01 | CARDIOLOGY CONSULTATION ---
DATE: 01/03/2019 REASON FOR CONSULTATION: Cardiology consulted for chest pain. HISTORY OF PRESENT ILLNESS: Mr. Ramey is a 78-year-old gentleman who was had coronary artery disease, atrial fibrillation, comes with complaints of having had chest discomfort, which he says was sharp, left-sided chest pain, radiating to his left side. He also has noticed mild shortness of breath associated with this. He had some nausea as well. He, prior to this episode, has not had recently any exertional component of chest pain. There is no orthopnea. He has been taking his medications regularly. There is no history of palpitations or syncope. REVIEW OF SYSTEMS: A 14-point review of systems was done. Gastrointestinal: There is no history of hematemesis or melena. Central Nervous System: No focal weakness to suggest a CVA or TIA. Genitourinary: There is no dysuria or hematuria. Respiratory: There is no history of cough, expectoration, hemoptysis. Constitutional: There is no history of fevers or chills. PAST MEDICAL HISTORY: 1. Coronary artery disease, status post stent placement in the past. 2. Chronic atrial fibrillation. 3. Hypertension. 4. History of TIA. 5. History of hepatitis. SOCIAL HISTORY: The patient does not smoke. However, dips tobacco and drinks vodka, 3 to 4 shots on a daily basis. PAST SURGICAL HISTORY: Appendectomy, joint replacement. HOME MEDICATIONS: Include Eliquis 5 mg p.o. b.i.d., aspirin 81 mg a day, atorvastatin, Coreg 6.25 mg b.i.d., pravastatin, lisinopril/hydrochlorothiazide, diltiazem extended-release 360 mg daily. PHYSICAL EXAMINATION: Vital Signs: Blood pressure was 131/89. Heart: First and second heart sounds were heard. There was no S3 gallop. Respiratory: Normal air entry. There are no crepitations or rhonchi. Abdomen: Soft, nontender. There was no guarding or rigidity. Bowel sounds were heard. Central Nervous System: Alert and oriented. Was moving all 4 extremities. Extremities: No pedal edema. IMAGING AND LABORATORY DATA: Sodium 140, potassium 3.7, BUN 10, creatinine 0.7. Cardiac enzymes were negative. WBC 5.46, hemoglobin 15.7, hematocrit 46, platelet count 186. Chest x-ray unremarkable. ASSESSMENT AND PLAN: Mr. Eliseo Matos is a 78-year-old gentleman with history of coronary artery disease with angioplasty and stent placement in the past, chronic atrial fibrillation, hypertension, tobacco and alcohol abuse, who is admitted with chest pain. 1. Chest pain. Symptoms of chest pain are atypical. He has been ruled out for myocardial infarction by cardiac enzymes. We will set him up to undergo a Cardiolite stress test to assess for and rule out ischemia. His electrocardiogram revealed atrial fibrillation, rate under control. He is on anticoagulation therapy. I have not made any changes. 2. Hypertension. Continue with his home medication. 3. He drinks alcohol on a regular basis, in addition to dipping tobacco. I have advised him to stop. However, I am not sure whether he is going to do that. 4. Hyperlipidemia. Continue with his medication. 5. He has macular degeneration with impaired vision. If his ischemic workup is negative, he can be discharged home and [facility]. Thank you for the consult. Will follow hospital course. cc: Shade Black MD
[2019-01-04] MEDS: TYLENOL PO PRN ×2 (03:56→10:02)
[2019-01-04 06:24] LABS: HEMATOCRIT 45.6 % (42.0-52.0); HEMOGLOBIN 16.1 g/dL (14.0-18.0); MCH 35.2 PG (27-31); MCHC 35.3 g/dL (33-37); MCV 99.6 FL (81-99); RBC 4.58 XMIL (4.7-6.1); RDW 13.8 % (11.5-14.5); WBC 5.79 X1000 (4.8-10.8)
[2019-01-04 06:41] LABS: AGAP 12; BUN 13 mg/dL (8-22); CALCIUM 8.7 mg/dL (8.8-10.2); CHLORIDE 101 mmol/L (98-107); COSMO 280; CREATININE 0.7 mg/dL (0.7-1.2); ESTIMATED GFR > 60; GLUCOSE 109 mg/dL (70-104); POTASSIUM 3.8 mmol/L (3.5-5.1); SODIUM 140 mmol/L (136-145); TCO2 27 mmol/L (25-35)
[2019-01-04 07:43] VITALS: BP 123/77
[2019-01-04] MEDS: PRAVACHOL PO SCH (09:44)
[2019-01-04] MEDS: CARDIZEM CD PO SCH (09:44)
[2019-01-04] MEDS: PRINZIDE 10/12.5MG PO SCH (09:45)
[2019-01-04] MEDS: ELIQUIS PO SCH (09:45)
[2019-01-04] MEDS: ASPIRIN PO SCH (09:45)
[2019-01-04] MEDS ORDERED: LEXISCAN ONE (13:10)
[2019-01-04] MEDS ORDERED: LIBRIUM PO SCH (14:15)
--- NOTE | 2019-01-04 14:46 | PROGRESS NOTE ---
DATE: 01/04/2019 SUBJECTIVE: Patient reports feeling fine. Denies any chest pain or shortness of breath. OBJECTIVE: Vital Signs: Temperature 97.6 degrees, heart rate 61, respiratory rate 18, blood pressure 123/77, O2 saturation 100% on room air. General Examination: This is a 78-year-old, male, lying in bed, in no acute distress. Cardiovascular Examination: S1 and S2 heard. Irregularly irregular but no murmurs, gallops, or rubs noted. Respiratory Examination: Clear bilaterally to auscultation. No work of breathing or using accessory muscles. Abdomen: Soft, nontender to palpation. Bowel sounds present. No organomegaly. Extremities: No clubbing, cyanosis, or edema. Peripheral pulses present in both legs. Neurological Examination: The patient is alert and oriented x3. Moves 4 extremities. Patient is very hard of hearing. Patient had macular degeneration. Laboratory Data: CBC and BMP have been reviewed and are okay. ASSESSMENT AND PLAN: 1. Chest pain. 2. Atrial fibrillation, rate controlled. 3. Hypercholesterolemia. 4. Chronic tobacco abuse. 5. Morbid obesity. PLAN: At this point, the patient is not having any more episodes of chest pain. He is supposed to have a Lexiscan stress test today. Cardiology has evaluated this patient. We will follow recommendations. They recommended if that exam is normal, he may be discharged later on today or tomorrow, depending upon when that exam is available. The patient also drinks alcohol; in this case, small bottles of vodka. Just to prevent him from going into withdrawals, we will start Librium on this patient at 25 mg p.o. q.6 hours. We will continue to monitor this patient closely. cc: Ethan Gonzales MD
--- NOTE | 2019-01-04 15:17 | Diag Imaging Result Document ---
PROCEDURE NAME: MYOCARDIAL PERF SCAN, STR/REST - 01/02/2019 PROCEDURE PERFORMED: Lexiscan Cardiolite stress test. DESCRIPTION OF PROCEDURE: Lexiscan was infused per standard protocol. Baseline electrocardiogram revealed atrial fibrillation. There was no chest pain. Stress electrocardiogram was negative for ischemia. Cardiolite was injected. Gated SPECT images were obtained in standard views. Images revealed significant chest wall and diaphragmatic attenuation. There were 16.2 mCi of Cardiolite injected for the rest phase and 41.6 mCi of Cardiolite injected for the stress phase. Images revealed normal left ventricular cavity size. There is thinning noted in the base of the lateral wall, suggestive of attenuation defect or scar. There is no evidence of ischemia. Left ventricular ejection fraction by gated SPECT was 59%. CONCLUSIONS: 1. No chest pain. 2. Baseline atrial fibrillation noted. 3. Negative Lexiscan stress electrocardiogram. 4. Myocardial perfusion images revealed no evidence of ischemia. 5. There is a low-grade, small-sized thinning noted in the base of the lateral wall with significant chest wall attenuation. This is likely to represent attenuation defect. 6. Left ventricular ejection fraction by gated SPECT was 59%. cc: MD Rafael Nicholas CRNP
--- NOTE | 2019-01-04 16:43 | DISCHARGE SUMMARY ---
ADMISSION DATE: 01/02/2019 DISCHARGE DATE: 01/04/2019 DISCHARGE DIAGNOSES: 1. Chest pain resolved. 2. Acute coronary syndrome ruled out. 3. Atrial fibrillation. Rate controlled. 4. Chronic tobacco abuse. 5. Morbid obesity. CONSULTATIONS: Dr. Black from Cardiology. PROCEDURES: 1. Chest x-ray done on admission showed stable cardiomegaly but no definite acute chest pathology otherwise. 2. Myocardial perfusion scan by nuclear medicine showed no chest pain. Baseline atrial fibrillation noted with negative Lexiscan stress test. 3. Electrocardiogram myocardial perfusion imaging revealed no evidence of ischemia left ventricular systolic function was calculated at 59%. DISCHARGE PHYSICAL EXAMINATION: Vital Discharge: Temperature 97.6 degrees, heart rate 61, respiratory rate 18, blood pressure 123/77. O2 saturation 100% on room air. General: This is a 78-year-old male, lying in bed, in no acute distress. Cardiovascular: S1, S2 heard. No murmurs, gallops, or rubs. Regular rate and rhythm. Respiratory: Clear bilaterally to auscultation. No work of breathing or using any accessory muscles. Abdomen: Soft, nontender to palpation. Bowel sounds present. No organomegaly. Extremities: No clubbing, cyanosis, or edema. Peripheral pulses present in both legs. Neurological: The patient is alert and oriented x3. Moves 4 extremities. DISCHARGE DISPOSITION: Home to self-care. LIST OF MEDICATIONS: We are not going to make any changes to his current medications: 1. Diltiazem CD 360 mg 1 tablet p.o. daily. 2. Lisinopril/hydrochlorothiazide 20/25 mg 1 tablet p.o. daily. 3. Pravastatin 40 mg 1 tablet p.o. daily. 4. Nitroglycerin as directed. 5. Coreg 6.25, 1 tablet, p.o. every 12 hours. 6. Lipitor 20 mg 1 tablet p.o. at bedtime. 7. Aspirin 81 mg 1 tablet p.o. daily. 8. Eliquis 5 mg 1 tablet p.o. b.i.d. 9. Omeprazole 20 mg 1 tablet p.o. daily. DISCHARGE TIME: Thirty-two minutes. cc: Ethan Gonzales MD
== END 2019-01-04 16:20 | disposition home or self-care (01) ==
LOC: ED 22:54 → SUATTDRO 01-02 03:38 → 1N 01-02 03:38 → INTOOBSV 01-02 03:38 → 2N 01-02 18:44
PROVIDERS: ATTEND Internal Medicine